=== PATIENT | female | born 1980 | race Caucasian/White ===

== ENCOUNTER 2017-11-07 09:23 | Emergency (ER) | payer MEDICAID ==
[~2017-11-07] VITALS: Ht 172.7 cm; Wt 68.0 kg
[2017-11-07 09:40] VITALS: BP 112/76
--- NOTE | 2017-11-07 09:53 | Emergency Room Report ---
History of Present Illness General Chief Complaint: Abdominal Pain Source: Patient Present Illness HPI Patient presents with complaints of left flank pain Ongoing for the past one day Patient reports that she was told she had a kidney stone recently Denies any chest pain denies any pleurisy Denies any back or flank pain Denies any vomiting she does have some nausea Patient had recent discectomy in the cervical spine Denies any neuropathy She had some tingling in the left hand however that was ongoing prior to surgery Allergies: Coded Allergies: IBUPROFEN (Verified Allergy, Unknown, 11/07/17) Patient History Past Medical History: see triage record Pertinent Family History: none Now: No Reviewed Nursing Documentation: PMH: Agreed; PSxH: Agreed Nursing Documentation-PMH Past Medical History: No History, Except For Review of Systems All Other Systems: negative except mentioned in HPI Physical Exam Vital Signs Date Time Temp Pulse Resp B/P (MAP) Pulse Ox O2 Delivery O2 Flow Rate FiO2 11/07/17 09:30 98.1 134 22 112/74 97 Room Air 98.1 Sp02 EP Interpretation: reviewed, normal General Appearance: well appearing, no apparent distress Head: normocephalic, atraumatic Eyes: bilateral eye PERRL, bilateral eye EOMI ENT: hearing grossly normal, normal pharynx, TMs + canals normal, uvula midline Neck: full range of motion, supple, no meningismus, no bony tend Respiratory: lungs clear, normal breath sounds, no rhonchi, no respiratory distress, no retraction, no accessory muscle use Cardiovascular #1: normal peripheral pulses, regular rate, rhythm, no edema, no gallop, no JVD, no murmur Gastrointestinal: normal bowel sounds, non tender, soft, no mass, no organomegaly, non-distended, no guarding, no hernia, no pulsatile mass, no rebound Genitourinary: no CVA tenderness - However patient was uncomfortable on palpation of the left upper quadrant also subjectively points to the mid axillary lower rib cage Musculoskeletal: normal inspection Neurologic: oriented x3, responsive, paraeducator III-XII nml as tested, motor strength/ tone normal, sensory intact Psychiatric: mood/affect normal Skin: normal color, no rash, warm/dry, palpation normal Lymphatic: normal inspection, no adenopathy Medical Decision Making Diagnostic Impression: Primary Impression: Pyelonephritis ER Course With the patient's history and examination, multiple differentials considered, including but not limited to , ectopic , ovarian torsion, gastritis, cholecystitis, pancreatitis, appendicitis Patient's urine sample does show infectious pathology She reports that she did have a [place] catheter during her procedure Given the left flank discomfort in the mildly elevated white blood cell count early polynephritis is considered CT does not show any signs of obstructive uropathy Patient provided with IV antibiotics on repeat evaluation feel significantly better is discussed regarding the need to return with any worsening symptoms fevers or vomiting And will have initial conservative outpatient trial Labs Test 11/07/17 09:50 White Blood Count 14.1 K/UL (4.8-10.8) Red Blood Count 5.09 M/UL (4.20-5.40) Hemoglobin 14.3 G/DL (12.0-16.0) Hematocrit 42.4 % (37.0-47.0) Mean Corpuscular Volume 83 FL (80-99) Mean Corpuscular Hemoglobin 28.2 PG (27.0-31.0) Mean Corpuscular Hemoglobin Concent 33.8 G/DL (32.0-36.0) Red Cell Distribution Width 11.3 % (11.6-14.8) Platelet Count 266 K/UL (150-450) Mean Platelet Volume 5.5 FL (6.5-10.1) Neutrophils (%) (Auto) 80.6 % (45.0-75.0) Lymphocytes (%) (Auto) 10.2 % (20.0-45.0) Monocytes (%) (Auto) 8.8 % (1.0-10.0) Eosinophils (%) (Auto) 0.0 % (0.0-3.0) Basophils (%) (Auto) 0.4 % (0.0-2.0) Urine Color Pale yellow Urine Appearance Clear Urine pH 7 (4.5-8.0) Urine Specific [place] 1.010 (1.005-1.035) Urine Protein 2+ (NEGATIVE) Urine Glucose (UA) Negative (NEGATIVE) Urine Ketones Negative (NEGATIVE) Urine Occult Blood 3+ (NEGATIVE) Urine Nitrite Negative (NEGATIVE) Urine Bilirubin Negative (NEGATIVE) Urine Urobilinogen Normal MG/DL (NORMAL) Urine Leukocyte Esterase 3+ (NEGATIVE) Urine RBC 2-4 /HPF (0 - 2) Urine WBC 20-30 /HPF (0 - 2) Urine Squamous Epithelial Cells Moderate /LPF (NONE/OCC) Urine Bacteria Many /HPF (NONE) Urine HCG, Qualitative Negative (NEGATIVE) Sodium Level 139 MMOL/L (136-145) Potassium Level 3.2 MMOL/L (3.5-5.1) Chloride Level 103 MMOL/L (98-107) Carbon Dioxide Level 25 MMOL/L (21-32) Anion Gap 11 mmol/L (5-15) Blood Urea Nitrogen 7 mg/dL (7-18) Creatinine 0.8 MG/DL (0.55-1.30) Estimat Glomerular Filtration Rate > 60 mL/min (>60) Glucose Level 118 MG/DL (74-106) Calcium Level 8.7 MG/DL (8.5-10.1) Total Bilirubin 1.0 MG/DL (0.2-1.0) Aspartate Amino Transf (AST/SGOT) 14 U/L (15-37) Alanine Aminotransferase (ALT/SGPT) 17 U/L (12-78) Alkaline Phosphatase 92 U/L (46-116) Total Protein 7.8 G/DL (6.4-8.2) Albumin 3.5 G/DL (3.4-5.0) Globulin 4.3 g/dL Albumin/Globulin Ratio 0.8 (1.0-2.7) Lipase 85 U/L (73-393) CT/MRI/US Diagnostic Results CT/MRI/US Diagnostic Results : Impression CT abdomen pelvisIMPRESSION: Limited exam without intravenous and oral contrast. Within these limitations: * 6 mm stone in the lower pole of the left kidney. There is very subtle left perinephric stranding. No left-sided hydronephrosis. Correlate with urinalysis to assess for superimposed infection. * Ectopic, pelvic right kidney. No evidence of stone or hydronephrosis in the right renal collecting system. * Approximately 4 cm right ovarian cyst. * Normal appendix. No bowel obstruction. * Findings suggesting anemia. Correlate with CBC. Last Vital Signs Date Time Temp Pulse Resp B/P (MAP) Pulse Ox O2 Delivery O2 Flow Rate FiO2 11/07/17 09:40 98.1 100 26 112/76 96 Room Air 98.1 Status: improved Disposition: HOME, SELF-CARE Condition: Improved Scripts Cephalexin* (KEFLEX*) 500 Mg Capsule 500 MG ORAL EVERY 6 HOURS for 28 Days, CAP Prov: Jamehdor,Ali DO 11/07/17 Additional Instructions: Patient is provided with the discharge instructions notified to follow up with primary doctor in the next 2-3 days otherwise return to the er with any worsening symptoms. Please note that this report is being documented using [employer] technology. This can lead to erroneous entry secondary to incorrect interpretation by the dictating instrument. Ranjit Abdi DO Nov 07, 2017 09:53
[2017-11-07] MEDS ORDERED: Morphine Sulfate 2mg/ml Inj(IV/IM USE ONLY) IVP ONE (10:00)
[2017-11-07 10:29] LABS: APPEARANCE,URINE CLEAR; BILIRUBIN, URINE NEGATIVE (NEGATIVE); COLOR,URINE PALE YELLOW; GLUCOSE, URINE (UA) NEGATIVE (NEGATIVE); KETONES,URINE NEGATIVE (NEGATIVE); LEUKOCYTE ESTERASE ,URINE 3+ (NEGATIVE); NITRITE,URINE NEGATIVE (NEGATIVE); PH,URINE 7 (4.5-8.0); PROTEIN,URINE 2+ (NEGATIVE); UROBILINOGEN,URINE NORMAL (NORMAL)
[2017-11-07 10:31] LABS: BASOPHILS % (AUTO) 0.4 % (0.0-2.0); HEMATOCRIT 42.4 % (37.0-47.0); HEMOGLOBIN 14.3 G/DL (12.0-16.0); LYMPHOCYTES % (AUTO) 10.2 % (20.0-45.0); MEAN CORPUSCULAR VOLUME 83 FL (80-99); MONOCYTES % (AUTO) 8.8 % (1.0-10.0); NEUTROPHILS % (AUTO) 80.6 % (45.0-75.0); PLATELET COUNT 266 K/UL (150-450); RED BLOOD COUNT 5.09 M/UL (4.20-5.40); RED CELL DISTRIBUTION WIDTH 11.3 % (11.6-14.8); WHITE BLOOD COUNT 14.1 K/UL (4.8-10.8)
[2017-11-07 10:46] LABS: ANION GAP 11 mmol/L (5-15); BLOOD UREA NITROGEN 7 mg/dL (7-18); CALCIUM 8.7 MG/DL (8.5-10.1); CARBON DIOXIDE 25 MMOL/L (21-32); CHLORIDE 103 MMOL/L (98-107); CREATININE 0.8 MG/DL (0.55-1.30); POTASSIUM 3.2 MMOL/L (3.5-5.1); SODIUM 139 MMOL/L (136-145)
[2017-11-07 10:56] LABS: ALANINE AMINOTRANSFERASE 17 U/L (12-78); ALBUMIN 3.5 G/DL (3.4-5.0); ALBUMIN/GLOBULIN RATIO 0.8 (1.0-2.7); ALKALINE PHOSPHATASE 92 U/L (46-116); ASPARTATE AMINO TRANSFERASE 14 U/L (15-37)
--- NOTE | 2017-11-07 11:14 | Diagnostic Imaging Report ---
Indication: Abdominal pain Technique: Noncontrast CT of the abdomen and pelvis utilizing automated exposure control. Axial, sagittal and coronal reformats presented. CT dose: Total DLP 726.65 mGycm; CTDI vol 14.56 mGy Comparison: None Findings: Please note that evaluation of the abdominal and pelvic viscera and vascular structures is limited without the use of intravenous and oral contrast. Within these limitations the following observations are made: Minimal dependent atelectatic changes noted in the posterior lower lobes bilaterally. Heart size within normal limits. No pericardial effusion. There is hypoattenuation of the blood pool relative to the septum suggesting anemia. Correlate with CBC. Hepatic contour is smooth. No CT evident gallstones or air cholecystic inflammatory change. No biliary ductal dilatation. Mild hepatosplenomegaly with the liver measuring approximately 19 cm in craniocaudal length and the spleen measuring approximately 13 cm. Adrenal glands and pancreas grossly unremarkable. Ectopia of the right kidney with the right kidney located in the pelvis. There is no hydronephrosis or urinary tract stone on the right. There is a 6 mm stone in the lower pole of the left kidney. There is no left-sided hydronephrosis. There is trace left perinephric stranding. Bladder is unremarkable. Uterus and left adnexa are unremarkable. There is a 4.2 cm right adnexal cyst. There is no free intraperitoneal air or fluid. There is no evidence of bowel obstruction. The appendix is normal. There are small retroperitoneal lymph nodes which are likely reactive in etiology. Abdominal aorta normal in caliber. There is no acute osseous abnormality. Is a tiny fat-containing umbilical hernia. IMPRESSION: Limited exam without intravenous and oral contrast. Within these limitations: * 6 mm stone in the lower pole of the left kidney. There is very subtle left perinephric stranding. No left-sided hydronephrosis. Correlate with urinalysis to assess for superimposed infection. * Ectopic, pelvic right kidney. No evidence of stone or hydronephrosis in the right renal collecting system. * Approximately 4 cm right ovarian cyst. * Normal appendix. No bowel obstruction. * Findings suggesting anemia. Correlate with CBC. The CT scanner at [facility] is accredited by the [employer] and the scans are performed using protocols designed to limit radiation exposure to as low as reasonably achievable to attain images of sufficient resolution adequate for diagnostic evaluation.
[2017-11-07] MEDS ORDERED: cefTRIAXone 1 GM in NS 55 ML IVPB ONE (12:15)
[2017-11-07] MEDS ORDERED: CEPHALEXIN500 MG ORAL (12:26)
[2017-11-07 13:00] VITALS: BP 124/84
[2017-11-07 13:10] VITALS: BP 124/84
== END 2017-11-07 13:10 | disposition home or self-care (01) ==
LOC: EDBD 09:23 → EMR 10:35
DX: N12 Tubulo-interstitial nephritis, not specified as acute or chronic (principal)
CPT/HCPCS: 36415; 74176; 80053; 81003; 81025; 83690; 85025; 87086; 87181; 99284; J0696; J2270; J2405

== ENCOUNTER 2018-10-14 13:51 | Emergency (ER) | payer MEDICAID ==
[~2018-10-14] VITALS: Ht 175.3 cm; Wt 68.0 kg
[~2018-10-14 13:51] MED LIST: CEPHALEXIN500 MG ORAL
[2018-10-14] MEDS ORDERED: AMITRIPTYLINE100 MG ORAL (13:58)
[2018-10-14 13:59] VITALS: BP 128/90
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
[2018-10-14] MEDS ORDERED: Ketorolac 30mg Inj IM ONE (14:15)
--- NOTE | 2018-10-14 14:34 | NUR ---
ED Nurse Note: x-ray taken at bedside.
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
[2018-10-14] MEDS ORDERED: VOLTAREN100 G1 TP (14:56)
[2018-10-14] MEDS ORDERED: ACETAMINOPHEN500 MG ORAL (14:56)
[2018-10-14 15:01] VITALS: BP 128/90
--- NOTE | 2018-10-14 15:02 | NUR ---
ER DISCHARGE NOTE: Patient is cleared to be discharged per ERPA after Lt knee brace applied, pt is aox4, on room air, with stable vital signs. pt was given dc and prescription instructions, pt was able to verbalize understanding, pt id band removed. pt is able to ambulate with steady gait. pt took all belongings.
--- NOTE | 2018-10-15 12:00 | Diagnostic Imaging Report ---
Indication: Right knee pain Technique: 3 views of the ] knee Comparison: None Findings:No acute fractures. No dislocations. No suprapatellar effusion. The joint spaces are preserved Impression: Negative
== END 2018-10-14 15:20 | disposition home or self-care (01) ==
LOC: EDBD 13:51 → EMR 14:36
DX: M25.561 Pain in right knee (principal); G89.29 Other chronic pain; M79.2 Neuralgia and neuritis, unspecified; Z87.820 Personal history of traumatic brain injury; Z88.6 Allergy status to analgesic agent
CPT/HCPCS: 73562; 96372; 99283; J1885

== ENCOUNTER 2019-05-24 12:29 | Emergency (ER) | payer MEDICAID ==
[~2019-05-24] VITALS: Ht 165.1 cm; Wt 59.0 kg
[~2019-05-24 12:29] MED LIST changes: +ACETAMINOPHEN500 MG ORAL; +AMITRIPTYLINE100 MG ORAL; +VOLTAREN100 G1 TP
--- NOTE | 2019-05-24 12:33 | NUR ---
ED Nurse Note: PT. BROUGHT IN BY [phone] PER EMS, PT. CALLED 911 DUE TO ABD PAIN WITH BLEEEDING X 1 HR FROM NOW PER EMS., PT HAS HAD HX OF 1ST BUT DENIES ANY HX OF MISCARRIAGE Addendum: 05/24/19 at 1252 by CDOMINGO ED Nurse Note: pt styated she is about 2 months far a long with her
[2019-05-24 12:40] VITALS: BP 146/80
--- NOTE | 2019-05-24 12:53 | NUR ---
ED Nurse Note: us at the bedside
--- NOTE | 2019-05-24 13:08 | Emergency Room Report ---
History of Present Illness General Chief Complaint: Female Urogenital Problems Source: Patient Present Illness HPI 38-year-old female presents ED for evaluation of vaginal bleeding. Started today. Brought in by EMS. Cramping pains, 7 out of 10, nonradiating. States that pain started last night. States she is about 2 months . Had an ultrasound a few days ago which showed an IUP. Denies fevers or chills. Denies chest pain. No other aggravating relieving factors. Denies any other associated symptoms Allergies: Coded Allergies: IBUPROFEN (Verified Allergy, Unknown, 11/07/17) Patient History Past Medical History: none Past Surgical History: none Pertinent Family History: none Social History: Denies: smoking, alcohol use, drug use Now: Yes - 03/04/19 Immunizations: UTD Reviewed Nursing Documentation: PMH: Agreed; PSxH: Agreed Review of Systems All Other Systems: negative except mentioned in HPI Physical Exam Vital Signs Date Time Temp Pulse Resp B/P (MAP) Pulse Ox O2 Delivery O2 Flow Rate FiO2 05/24/19 12:28 98.1 110 18 146/80 (102) 98 Room Air Sp02 EP Interpretation: reviewed, normal General Appearance: no apparent distress, alert, GCS 15, non-toxic Head: normocephalic, atraumatic Eyes: bilateral eye normal inspection, bilateral eye PERRL ENT: hearing grossly normal, normal pharynx, no angioedema, normal voice Neck: full range of motion, supple/symm/no masses Respiratory: chest non-tender, lungs clear, normal breath sounds, speaking full sentences Cardiovascular #1: regular rate, rhythm, no edema Cardiovascular #2: 2+ carotid (R), 2+ carotid (L), 2+ radial (R), 2+ radial (L) , 2+ dorsalis pedis (R), 2+ dorsalis pedis (L) Gastrointestinal: normal bowel sounds, non tender, soft, non-distended, no guarding, no rebound Rectal: deferred Genitourinary: normal inspection, no CVA tenderness Musculoskeletal: back normal, normal range of motion, gait/station normal, non- tender Neurologic: alert, motor strength/tone normal, oriented x3, sensory intact, responsive, speech normal Psychiatric: judgement/insight normal, memory normal, mood/affect normal, no suicidal/homicidal ideation Reflexes: 3+ bicep (R), 3+ bicep (L), 3+ tricep (R), 3+ tricep (L), 3+ knee (R) , 3+ knee (L) Lymphatic: no adenopathy Medical Decision Making Diagnostic Impression: Primary Impression: Miscarriage ER Course Hospital Course 38-year-old F presents to ED complaining of vaginal bleeding. approxiamtely 2 months pregant Differential diagnoses include: gastrits, gastroenterits, ectopic , ovarian torsion/cyst, UTI Clinical course Patient placed on stretcher in ED. After initial history and physical I ordered labs, IV fluids and OB ultrasound. Labs- minimal leukocytosis, electrolytes okay, beta hCG > 9000, UA unremarkable OB ultrasound- no IUP detected Patient had ultrasound done at another clinic 2 days ago which confirmed IUP. I discussed findings with patient. Likely miscarriage. No retained products however I recommend close follow-up with VASCULAR TECHNICIAN. Patient agrees. Safe for discharge for close outpatient follow-up Diagnosis -miscarriage Stable and discharged to home. Followup with PMD/VASCULAR TECHNICIAN. Return to ED if symptoms recur or worsen Labs Test 05/24/19 12:46 White Blood Count 11.8 K/UL (4.8-10.8) Red Blood Count 4.30 M/UL (4.20-5.40) Hemoglobin 13.0 G/DL (12.0-16.0) Hematocrit 37.9 % (37.0-47.0) Mean Corpuscular Volume 88 FL (80-99) Mean Corpuscular Hemoglobin 30.3 PG (27.0-31.0) Mean Corpuscular Hemoglobin Concent 34.3 G/DL (32.0-36.0) Red Cell Distribution Width 11.8 % (11.6-14.8) Platelet Count 297 K/UL (150-450) Mean Platelet Volume 4.9 FL (6.5-10.1) Neutrophils (%) (Auto) 73.3 % (45.0-75.0) Lymphocytes (%) (Auto) 21.0 % (20.0-45.0) Monocytes (%) (Auto) 4.8 % (1.0-10.0) Eosinophils (%) (Auto) 0.3 % (0.0-3.0) Basophils (%) (Auto) 0.5 % (0.0-2.0) Prothrombin Time 11.4 SEC (9.30-11.50) Prothromb Time International Ratio 1.1 (0.9-1.1) Activated Partial Thromboplast Time 26 SEC (23-33) Sodium Level 141 MMOL/L (136-145) Potassium Level 3.4 MMOL/L (3.5-5.1) Chloride Level 105 MMOL/L (98-107) Carbon Dioxide Level 24 MMOL/L (21-32) Anion Gap 12 mmol/L (5-15) Blood Urea Nitrogen 7 mg/dL (7-18) Creatinine 0.7 MG/DL (0.55-1.30) Estimat Glomerular Filtration Rate > 60 mL/min (>60) Glucose Level 106 MG/DL (74-106) Calcium Level 8.7 MG/DL (8.5-10.1) Total Bilirubin 0.3 MG/DL (0.2-1.0) Aspartate Amino Transf (AST/SGOT) 13 U/L (15-37) Alanine Aminotransferase (ALT/SGPT) 19 U/L (12-78) Alkaline Phosphatase 52 U/L (46-116) Total Protein 7.2 G/DL (6.4-8.2) Albumin 3.5 G/DL (3.4-5.0) Globulin 3.7 g/dL Albumin/Globulin Ratio 0.9 (1.0-2.7) Lipase 82 U/L (73-393) Human Chorionic Gonadotropin, Quant 9726 mIU/mL (1-6) CT/MRI/US Diagnostic Results CT/MRI/US Diagnostic Results : Imaging Test Ordered: OB US Impression Comparison: No comparison sonograms. Reference made to abdomen pelvis CT dated 11/07/2017 Findings: Uterus measures 9.5 cm length by 5.8 cm AP. No intrauterine demonstrated. The endometrium it is heterogeneous, measures up to 23 mm thick. Tiny anechoic structure is seen in the lower uterine segment endometrium. There is a small amount of free cul-de-sac fluid. The left ovary is visualized transabdominally, measures 2.4 cm in length. It demonstrates normal flow on Doppler. The right ovary cannot be visualized. Posterior to the uterus, and ectopic right kidney (also demonstrated on prior CT scan) is visualized. Impression: No intrauterine demonstrated. Thickening heterogeneous endometrium and lower uterine segment fluid likely indicates spontaneous , but very early and ectopic are also in the differential. Retained products of conception not excludable: There are no specific features of such. Nonvisualized right ovary. Normal left ovary. Ectopic kidney visualized Last Vital Signs Date Time Temp Pulse Resp B/P (MAP) Pulse Ox O2 Delivery O2 Flow Rate FiO2 05/24/19 12:28 98.1 110 18 146/80 (102) 98 Room Air Status: improved Disposition: HOME, SELF-CARE Condition: Stable Scripts Acetaminophen* (TYLENOL EXTRA STRENGTH*) 500 Mg Tablet 500 MG ORAL Q8H PRN for Prn Headache/Temp > 101, #30 TAB 0 Refills Prov: Bartolo Elizondo MD 05/24/19 Bartolo Elizondo MD May 24, 2019 13:08
[2019-05-24 13:15] LABS: BASOPHILS % (AUTO) 0.5 % (0.0-2.0); EOSINOPHILS % (AUTO) 0.3 % (0.0-3.0); HEMATOCRIT 37.9 % (37.0-47.0); MEAN CORPUSCULAR VOLUME 88 FL (80-99); MONOCYTES % (AUTO) 4.8 % (1.0-10.0); NEUTROPHILS % (AUTO) 73.3 % (45.0-75.0); PLATELET COUNT 297 K/UL (150-450); RED CELL DISTRIBUTION WIDTH 11.8 % (11.6-14.8); WHITE BLOOD COUNT 11.8 K/UL (4.8-10.8)
[2019-05-24 13:25] LABS: INR 1.1 (0.9-1.1)
[2019-05-24 13:29] LABS: ANION GAP 12 mmol/L (5-15); BLOOD UREA NITROGEN 7 mg/dL (7-18); CALCIUM 8.7 MG/DL (8.5-10.1); CARBON DIOXIDE 24 MMOL/L (21-32); CHLORIDE 105 MMOL/L (98-107); CREATININE 0.7 MG/DL (0.55-1.30); POTASSIUM 3.4 MMOL/L (3.5-5.1); SODIUM 141 MMOL/L (136-145)
[2019-05-24 13:33] LABS: ALANINE AMINOTRANSFERASE 19 U/L (12-78); ALBUMIN 3.5 G/DL (3.4-5.0); ALBUMIN/GLOBULIN RATIO 0.9 (1.0-2.7); ALKALINE PHOSPHATASE 52 U/L (46-116); ASPARTATE AMINO TRANSFERASE 13 U/L (15-37); BILIRUBIN,TOTAL 0.3 MG/DL (0.2-1.0)
--- NOTE | 2019-05-24 13:48 | NUR ---
ED Nurse Note: US finished. Patient resting in bed. Very scant amount of dried blood on chux underneath patient. Patient denies dizziness, she states that it feels like the bleeding has slowed. No s/s of acute distress.
--- NOTE | 2019-05-24 13:55 | NUR ---
ED Nurse Note: Asked patient to give urine sample. Per patient, she states she does not need to urinate and would like to try at a later time.
--- NOTE | 2019-05-24 14:57 | Diagnostic Imaging Report ---
Indication: Vaginal bleeding and cramping, positive test Technique: Transabdominal and transvaginal images of the pelvis. Doppler interrogation of the bilateral ovaries Comparison: No comparison sonograms. Reference made to abdomen pelvis CT dated 11/07/2017 Findings: Uterus measures 9.5 cm length by 5.8 cm AP. No intrauterine demonstrated. The endometrium it is heterogeneous, measures up to 23 mm thick. Tiny anechoic structure is seen in the lower uterine segment endometrium. There is a small amount of free cul-de-sac fluid. The left ovary is visualized transabdominally, measures 2.4 cm in length. It demonstrates normal flow on Doppler. The right ovary cannot be visualized. Posterior to the uterus, and ectopic right kidney (also demonstrated on prior CT scan) is visualized. Impression: No intrauterine demonstrated. Thickening heterogeneous endometrium and lower uterine segment fluid likely indicates spontaneous , but very early and ectopic are also in the differential. Retained products of conception not excludable: There are no specific features of such. Nonvisualized right ovary. Normal left ovary. Ectopic kidney visualized
[2019-05-24] MEDS ORDERED: TYLENOL EXTRA500 MG ORAL (15:03)
[2019-05-24 15:10] VITALS: BP 146/80
== END 2019-05-24 15:10 | disposition home or self-care (01) ==
LOC: EDBD 12:29 → EMR 13:34
DX: O03.9 Complete or unspecified spontaneous abortion without complication (principal); Z88.6 Allergy status to analgesic agent
CPT/HCPCS: 36415; 76801; 76817; 80053; 83690; 84702; 85025; 85610; 85730; 86850; 86900; 86901; 96360; Z7502; 99284